=== PATIENT | male | born 2000 | race Caucasian/White ===

== ENCOUNTER 2018-09-24 16:56 | Emergency (ER) | payer OTHER, SELFPAY ==
[2018-09-24 16:58] VITALS: BP 144/91; PULSE 100; RESP 18; TEMP 36.9; O2SAT 94; BMI 28.3
--- NOTE | 2018-09-24 17:01 | RAD_ITS ---
STUDY: X-RAY CHEST REASON FOR EXAM: Male, 17 years old. Cough TECHNIQUE: Frontal view of the chest COMPARISON: None. FINDINGS: The lungs are clear. There are no pleural effusions. There is no pneumothorax. The heart is normal in size. The visualized osseous structures are within normal limits. RAD/Chest 1 View IMPRESSION: No acute thoracic pathology. Electronically Signed: Serg Garrison, at 17:29 EST Tel , Service support ,
[2018-09-24 17:48] VITALS: PULSE 108; RESP 18
[2018-09-24] MEDS: Albuterol 2.5 MG/3 ML VIAL.NEB. INHALATION ×2 (17:48→17:58)
[2018-09-24] MEDS: Ipratropium/Albuterol Sulfate 3 ML AMPUL.NEB INHALATION (17:48)
[2018-09-24] MEDS: predniSONE 20 MG Tablet 60 MG PO (18:08)
--- NOTE | 2018-09-24 18:08 | ED.DCSUM_ITS ---
- ER Visit Summary Date of Service: 09/24/18 Chief Complaint: Cough History of Present Illness: The patient is a 17 M with a one-month history of cough. He has head and chest congestion and occasionally brings up sputum. He has not had fever but has had noted occasional chills. He denies chest pain. Family states patient did have asthma-like symptoms when he was in school and played sports. He had an inhaler to use at that time. Physical Examination: Vital signs are unremarkable. His pulse ox is 94% on room air. Patient sitting upright in bed no acute distress. He is speaking full sentences. Head neck examination reveals TMs to be clear bilaterally. He has mild posterior pharyngeal drainage. Heart is regular rate and rhythm. Lungs sounds with expiratory wheezes throughout. Abdomen is soft nontender. Test Results: Chest x-ray ordered per nursing protocol shows no focal infiltrate. Emergency Department Course and Treatment: Patient is given prednisone and aerosols. On repeat evaluation his lungs are clear. So he will be given 4 additional days of prednisone at home and albuterol MDI. He is to follow with his primary care physician. Treatment Plan: [] Disposition: Discharge Impression: Viral URI with bronchospasm This note was generated with [employer] dictation software. It may contain incorrect words, spelling, and punctuation that were not noted in review of the chart prior to signing ED Disposition - Plan for ED Patient: Chief Complaint: Cough Referrals: Janes Farmer MD [Primary Care Provider] -
[2018-09-24 18:09] VITALS: O2SAT 96
[2018-09-24 18:10] VITALS: RESP 18; O2SAT 95
--- NOTE | 2018-09-24 18:19 | ED.DEP ---
ED Disposition - Plan for ED Patient: Disposition: Home or Assisted Living Chief Complaint: Cough Instructions: ED URI Viral W Wheezing Prescriptions: Albuterol Inhaler [Ventolin Hfa] 1 - 2 puff INHALATION Q4H PRN PRN #1 inhaler PRN Reason: Wheezing Prednisone [Deltasone] 40 mg PO DAILY #8 tablet Referrals: Janes Farmer MD [Primary Care Provider] - 1 Week
[2018-09-24 18:25] VITALS: PULSE 99; RESP 18; O2SAT 97
--- OUTSIDE RECORDS SUMMARY | 2018-11-19 16:37 | XMS RPT_ITS ---
:2000 Author Organization [facility] Care Team Providers Name Role Phone Janes Farmer Primary Care Unavailable Katie Youngblood Attending Unavailable PROBLEMS PROBLEMS No Problem Records FoundPROCEDURES PROCEDURES No Procedure Records FoundRESULTS RESULTS EMERGENCY DEPARTMENT Observed: 09/24/2018 Status: F Source: [place] SUMMARY 10:56 PM [facility] REPOSITORY [facility] Medical Records Department [address] [place] [address] Emergency Department Summary 09/24/18 1806 MR#: [id number] Acct: [id number] Name: MEJIA BECK Rep #: [id number] : 2000 17 From: Katie Youngblood MD PCP: Janes Farmer MD Status: DEP ER - ER Visit Summary Date of Service: 09/24/18 Chief Complaint: Cough History of Present Illness: The patient is a 17 M with a one- month history of cough. He has head and chest congestion and occasionally brings up sputum. He has not had fever but has had noted occasional chills. He denies chest pain. Family states patient did have asthma-like symptoms when he was in school and played sports. He had an inhaler to use at that time. Physical Examination: Vital signs are unremarkable. His pulse ox is 94% on room air. Patient sitting upright in bed no acute distress. He is speaking full sentences. Head neck examination reveals TMs to be clear bilaterally. He has mild posterior pharyngeal drainage. Heart is regular rate and rhythm. Lungs sounds with expiratory wheezes throughout. Abdomen is soft nontender. Test Results: Chest x-ray ordered per nursing protocol shows no focal infiltrate. Emergency Department Course and Treatment: Patient is given prednisone and aerosols. On repeat evaluation his lungs are clear. So he will be given 4 additional days of prednisone at home and albuterol MDI. He is to follow with his primary care physician. Treatment Plan: [] Disposition: Discharge Impression: Viral URI with bronchospasm This note was generated with [employer] dictation software. It may contain incorrect words, spelling, and punctuation that were not noted in review of the chart prior to signing ED Disposition - Plan for ED Patient: Chief Complaint: Cough Referrals: Janes Farmer MD [Primary Care Provider] - What to do if you have Problems For any increased pain, shortness of breath, bleeding, nausea or vomiting, chest pain, or any unexpected problems, contact your Primary Care Provider. Call [facility] ([phone]) or report to the closest Emergency Room. Call 911 if necessary. 09/24/18 2256 <Electronically signed by Katie Youngblood MD> Date Katie Youngblood MD Cosigner Signature (If Indicated): Date CC: Janes Farmer MD DISCHARGE INSTRUCTION Observed: 09/24/2018 Status: F Source: [place] 6:20 PM [facility] REPOSITORY [facility] Medical Records Department [address] [place] [address] Discharge Instruction 09/24/18 1819 MR#: [id number] Acct: [id number] Name: MEJIA BECK Rep #: [id number] : 2000 17 From: Katie Youngblood MD PCP: Janes Farmer MD Status: REG ER ED Disposition - Plan for ED Patient: Disposition: Home or Assisted Living Chief Complaint: Cough Instructions: ED URI Viral W Wheezing Prescriptions: Albuterol Inhaler [Ventolin Hfa] 1 - 2 puff INHALATION Q4H PRN PRN #1 inhaler PRN Reason: Wheezing Prednisone [Deltasone] 40 mg PO DAILY #8 tablet Referrals: Janes Farmer MD [Primary Care Provider] - 1 Week What to do if you have Problems For any increased pain, shortness of breath, bleeding, nausea or vomiting, chest pain, or any unexpected problems, contact your Primary Care Provider. Call [facility] ([phone]) or report to the closest Emergency Room. Call 911 if necessary. 09/24/18 1820 <Electronically signed by Katie Youngblood MD> Date Katie Youngblood MD Cosigner Signature (If Indicated): Date CC: Janes Farmer MD CHEST 1 VIEW Observed: 09/24/2018 Status: F Source: [place] 5:01 PM [facility] REPOSIT[facility] Imaging Services [address] [place] [id number] Chest 1 View MR#: [id number] Acct: [id number] Name: MEJIA BECK Rep #: [id number] : 2000 M 17 From: Serg Garrison MD PCP: Janes Farmer MD Status: PRE ER Study: Chest 1 View Date of Exam: 09/24/18 Exam# [id number] Ordering Dr: Katie Youngblood MD STUDY: X-RAY CHEST REASON FOR EXAM: Male, 17 years old. Cough TECHNIQUE: Frontal view of the chest COMPARISON: None. FINDINGS: The lungs are clear. There are no pleural effusions. There is no pneumothorax. The heart is normal in size. The visualized osseous structures are within normal limits. RAD/Chest 1 View IMPRESSION: No acute thoracic pathology. Electronically Signed: Serg Garrison, at 17:29 EST Tel , Service support , CC: Katie Youngblood MD; Janes Farmer MD [employer] Finisher: Signed ALLERGIES ALLERGIES DATE TYPE / CODE NAME / CODE REACTION SEVERITY SOURCE 09/24/2018 Drug Sulfa Itching Unknown [facility] Allergy/4160 (Sulfonamide Hospital 7[address](SNOMED Antibiotics)/ Repository CT) [id number](RX NORM) ENCOUNTERS ENCOUNTERS ADMIT/DISCHARGE ACCOUNT ADMITTING ENCOUNTER LOCATION SOURCE NUMBER CLASS 09/24/2018/ [id number] Emergency [facility] [address] ing:ED Repository PAYERS PAYERS ENCOUNTER GUARANTOR PAYER SUBSCRIBER SOURCE 09/24/2018 MEJIA [place] [id number] Insurance:MEDICAL [facility]ESS[facility]OB[facility] [id number] Number: Repository [id number]: [phone] [phone] () Date:[id number] [address] [place] [id number]: 09/24/2018 Secondary NOT GIVENUNK [place] Insurance:SELF PAY [facility] Number: Effective Repository Date:2018-09-24
== END 2018-09-24 18:25 | disposition home or self-care (01) ==
PROVIDERS: Emergency Provider Emergency Medicine; Family Provider Pediatrics; PCP Pediatrics
DX: J06.9 Acute upper respiratory infection, unspecified (principal); J98.01 Acute bronchospasm; Z72.0 Tobacco use
CPT/HCPCS: 71045; 94640; 94760; 99283

== ENCOUNTER 2019-04-19 17:12 | Emergency (ER) | payer OTHER, SELFPAY ==
[2019-04-19 17:13] VITALS: BP 139/65; PULSE 87; RESP 14; RESP 15; TEMP 36.7; O2SAT 97; BMI 26.7
[2019-04-19 17:31] VITALS: O2SAT 98
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
[2019-04-19 18:54] VITALS: BP 129/67; PULSE 75; RESP 16; O2SAT 97
== END 2019-04-19 18:57 | disposition home or self-care (01) ==
PROVIDERS: Emergency Provider Emergency Medicine; Family Provider Pediatrics; PCP Pediatrics
DX: S20.211A Contusion of right front wall of thorax, initial encounter (principal); S46.911A Strain of unspecified muscle, fascia and tendon at shoulder and upper arm level, right arm, initial encounter; V29.88XA Motorcycle rider (driver) (passenger) injured in other specified transport accidents, initial encounter; Y93.89 Activity, other specified; Y92.410 Unspecified street and highway as the place of occurrence of the external cause; F17.200 Nicotine dependence, unspecified, uncomplicated
CPT/HCPCS: 71101; 73030; 99282

== ENCOUNTER 2019-07-30 00:39 | Emergency (ER) | payer OTHER, SELFPAY ==
[2019-07-30] VITALS (9 sets, daily range): BP systolic 105–135; BP diastolic 75–102; PULSE 74–121; RESP 16–20; TEMP 36.4–37.1; O2SAT 95–98; BMI 25.9
--- NOTE | 2019-07-30 00:52 | ED.VIS.GEN ---
History of Present Illness Chief Complaint: Shortness of Breath Informant: Patient Onset: Today Narrative: Presents to ED with headache, nonproductive cough, nausea and vomiting started 2 hours ago. No sick contacts. Chills and sweats. No myalgias. No fevers. Denies any past medical history is takes Benadryl for allergies. States feels congested. No urinary symptoms. No bloody emesis. No diarrhea. Prior similar symptoms: No Past Medical History - Allergies and Home Meds Allergies/Adverse Reactions: Allergies Sulfa (Sulfonamide Antibiotics) Adverse Reaction (Verified 04/19/19 17:12) Itching Primary Care Physician: Janes Farmer MD [Primary Care Provider] - Smoking Status: Current some day smoker Review of Systems General: Reports: Chills, Sweats. Denies: Fever Eyes: Denies: Visual changes - bilaterally, Diplopia ENT: Denies: Rhinorrhea, Sore throat Cardiovascular: Denies: Chest pain, Palpitations Respiratory: Reports: Cough. Denies: Dyspnea, Dyspnea on exertion Gastrointestinal: Reports: Nausea, Vomiting. Denies: Abdominal pain, Diarrhea, Melena, Hematochezia Genitourinary: Denies: Dysuria, Hematuria, Frequency Musculoskeletal: Denies: Back pain, Extremity Pain Skin: Denies: Rash, Wounds Neurological: Denies: Headache, Weakness, Numbness Physical Exam Vital Signs/Narrative: Vital Signs Temp Pulse Resp BP Pulse Ox 07/30/19 00:47 97.9 F 07/30/19 00:44 135/94 H 07/30/19 00:42 121 H 95 07/30/19 00:40 97.9 F 121 H 20 H 117/102 H 98 Inital Vital Signs reviewed: Yes General: Well nourished, Well developed, No Acute Distress Head: Normocephalic, Atraumatic Eyes: Perrl, EOMI ENT: Moist mucous membranes, No rhinorrhea, TM's clear Neck: Supple, Nontender Cardiovascular: Regular rate, Regular rhythm, No murmurs, Tachycardia Respiratory: No distress, CTA bilaterally, Chest nontender Abdomen: Soft, Nontender, Nondistended, Normal bowel sounds Back: Nontender, Normal Inspection Extremities: Nontender, No edema Skin: Normal color, No rash Neurological: Alert, Oriented x3, Cranial nerves II-XII grossly intact, Normal Strength, Normal Sensation Psychological: Normal affect, Normal Mood Diagnostic/Tx/Re-eval - Medical Decision Making Abnormal Lab Results 07/30/19 01:05 Sodium 140 Potassium 3.8 Chloride 107 Carbon Dioxide 25.0 Anion Gap 8 BUN 22 H Creatinine 1.11 Estim Creat Clear Calc 126.88 Est GFR (MDRD) Af Amer 108 Est GFR (MDRD) Non-Af 89 BUN/Creatinine Ratio 19.8 Glucose 103 Calcium 9.1 Total Bilirubin 0.40 AST 16 ALT 32 Alkaline Phosphatase 93 Total Protein 7.9 Albumin 4.0 Globulin 3.9 Albumin/Globulin Ratio 1.0 Vitals stable except slight tachycardia on arrival. He is vomiting multiple times initially, no hematemesis. IV is placed given fluids. Electrolytes were normal. Influenza negative. Given Toradol and Zofran, headache improved nausea improve her stated had abdominal cramping on reevaluation. Was given Levsin with improvement. He developed wheezing on reevaluation, treated with aerosol treatment with improvement of symptoms. Discussed viral syndrome at this time. Heart rate rechecked by myself was 102. However prior to discharge improved to 78. He will be written for prescription for inhaler, bentyl and zofran as needed. ED Disposition - Plan for ED Patient: Disposition: Home or Assisted Living Diagnosis: Viral URI with cough, Vomiting Instructions: BRONCHITIS, No Antibiotic (Adult), VOMITING (6y-Adult) Prescriptions: Dicyclomine HCl [Bentyl] 10 mg PO Q6H PRN PRN #12 capsule PRN Reason: abdominal cramping Albuterol IH (ProAir) [Proair Hfa (SP)Vent Pts] 1 - 2 puff INHALATION Q4H PRN PRN #1 inhaler PRN Reason: Wheezing Ondansetron [Zofran Odt] 4 mg PO Q8H PRN PRN #10 tablet PRN Reason: Nausea Referrals: Janes Farmer MD [Primary Care Provider] - 5-7 Days
[2019-07-30] MEDS: 0.9% Normal Saline 1,000 ML 1000 ML IV (01:01)
[2019-07-30] MEDS: Ketorolac 15 MG/ML Vial IV (01:02)
[2019-07-30] MEDS: Ondansetron 4 MG/2 ML Vial IV (01:02)
[2019-07-30 01:29] LABS: AST(SGOT) 16 U/L (15-37); Alanine Aminotransfer ALT/SGPT 32 U/L (16-61); Alkaline Phosphatase 93 U/L (45-117); Anion Gap 8 (5-15); BUN 22 mg/dL (7-18); BUN/Creat Ratio 19.8 RATIO (10-20); Calcium,Total 9.1 mg/dL (8.5-10.1); Chloride 107 mmol/L (98-107); Creatinine, Serum 1.11 mg/dL (0.70-1.30); EST Glomerular Filtration Rate 89 mL/min (>60); Est Glom Filt Rate - Afr Amer 108 mL/min (>60); Estimated Creatinine Clearance 126.88 ml/min; Globulin 3.9 g/dL (2.2-4.2); Glucose 103 mg/dL (74-106); Potassium 3.8 mmol/L (3.5-5.1); Protein, Total 7.9 g/dL (6.4-8.2); Sodium Level 140 mmol/L (136-145)
[2019-07-30] MEDS: Hyoscyamine Sulfate 0.125 MG Tablet SUBLINGUAL (01:53)
--- NOTE | 2019-07-30 01:56 | ED.RN ---
pt stated his chest feels more tight, dr. abbott made aware, duoneb ordered respiratory alerted about breathing treatment.
[2019-07-30] MEDS: Ipratropium/Albuterol Sulfate 3 ML AMPUL.NEB INHALATION (02:07)
== END 2019-07-30 03:05 | disposition home or self-care (01) ==
PROVIDERS: Emergency Provider Emergency Medicine; Family Provider Pediatrics; PCP Pediatrics
DX: J06.9 Acute upper respiratory infection, unspecified (principal); R11.2 Nausea with vomiting, unspecified; F17.200 Nicotine dependence, unspecified, uncomplicated
CPT/HCPCS: 80048; 80053; 87804; 94640; 96361; 96374; 96375; 99284; A4216; J2405

== ENCOUNTER 2021-08-26 16:56 | Emergency (ER) | payer OTHER, SELFPAY ==
[2021-08-26 16:58] VITALS: BP 144/87; PULSE 83; RESP 14; TEMP 36.4; O2SAT 99; BMI 28.7
--- NOTE | 2021-08-26 19:04 | EDS_ITS ---
HPI History of Present Illness Chief Complaint: GI Bleed Informant: patient and parent Onset/Context/Timing Onset: Month(s) (multiple) Context: Gradual Onset Timing: Intermittent Quality: small amts of bleeding Location: down from posterior nasopharynx/nose Current Severity: Mild Maximum Severity: Mild Worsened by: nothing Relieved by: nothing but prednisone helped in past Narrative Narrative: Patient has a history of bilateral nasal polyps. He had them removed earlier this year November-December by his ENT in [place], and he states they have gradually been coming back for the last few months, and for that period time he has also had minor bleeding from them mostly posteriorly and then he spits out blood in small amounts at a time. Sometimes he wakes up in the morning with an upset stomach and vomits up a small amount of blood that he swallowed overnight. He has never had hemoptysis. It is usually mucus that he kind of sucks back from his nasopharynx and then spits out with mucus. No major hemorrhaging. No symptoms of anemia. He had an appointment with his ENT to have this further evaluated today, he states they called and canceled his appointment and advised that he come to the emergency department. He has no shortness of breath but for the last several months he has had trouble moving air through his nose due to his nasal polyps, the same symptoms that he had prior to having them removed earlier this year. [facility] Medical History (Updated 08/26/21 @ 19:[address] Heriberto Rea MD) Asthma Nasal polyps Home Medications albuterol sulfate 1 - 2 puff INHALATION Q4H PRN PRN #1 inhaler 07/30/19 [Rx Last Taken Unknown] diphenhydramine HCl 50 mg PO PRN PRN 07/30/19 [History Last Taken Unknown] montelukast 10 mg PO DAILY 08/26/21 [History Last Taken Unknown] prednisone 10 mg PO UD #30 tab 08/26/21 [Rx Last Taken Unknown] Allergy/AdvReac Type Severity Reaction Status Date / Time Sulfa (Sulfonamide AdvReac Itching Verified 08/26/21 16:58 Antibiotics) Surgical History (Updated 08/26/21 @ 19:[address] Heriberto Rea MD) H/O nasal polypectomy Social History Smoking Status: Current some day smoker tobacco type: e-cigarettes ROS ROS ED Constitutional Constitutional ED: Denies chills or fever(s) Eyes Eyes: Denies change in vision or diplopia ENT ENT ED: Reports as per HPI; Denies ear pain, nose pain, rhinorrhea or sore throat Cardiovascular Cardiovascular: Denies chest pain Respiratory/Chest Respiratory/Chest: Denies cough or dyspnea Gastrointestinal Gastrointestinal: Reports nausea and vomiting; Denies abdominal pain, constipation, diarrhea or melena Genitourinary Genitourinary ED: Denies dysuria or hematuria Musculoskeletal Musculoskeletal: Denies myalgias or neck pain Integumentary Denies abscess or rash Neurologic Neurologic: Denies headache(s), paresthesias or weakness EXAM Physical Exam Const Vital Signs: 08/26/21 16:58 Temperature 97.6 F L Temperature Source Temporal Pulse Rate 83 Respiratory Rate 14 Blood Pressure 144/87 H Blood Pressure Mean 106 Pulse Ox 99 Oxygen Delivery Method Room Air Positive well nourished and well developed General Appearance ED: well developed and NAD HEENT Reports moist mucous membranes HEENT Narrative: Posterior oropharynx normal and without blood. No trismus. Polyps visible bilaterally with some clear nasal congestion the patient is breathing through audibly, no blood/bleeding. No stridor. Speaking in full sentences. No tenderness in any of the sinuses. No asymmetric facial swelling. Negative for trauma or tenderness Resp normal respiratory effort Back/Spine Negative for no CVA tenderness General Back: other Full range of motion Extremity normal to inspection General Extremety ED: Negative for tenderness Neuro oriented x3, CN's II-XII intact bilaterally and no sensory deficits noted Sensorium / Orientation: alert Motor Exam: strength 5/5 throughout Psych mental status grossly normal MDM MDM MDM Narrative Medical decision making narrative: This patient does not have a medical emergency at this time and does not require further work-up in my opinion. He agrees. No clinical evidence of sinusitis. He agrees he needs to follow-up with his ENT as soon as he is able, and I am happy to write him a prescription for prednisone to try to help his symptoms and bleeding which is helped in the past. Discharge Plan Triage Chief Complaint: GI Bleed ED Provider: Heriberto Rea Dx/Rx/DC Orders Clinical Impression: Nasal polyp Instructions: Treatment for Nasal Polyps Prescriptions: New prednisone 10 MG tablet 10 mg PO UD Qty: 30 RF: 0 No Action diphenhydramine HCl 25 MG capsule 50 mg PO PRN PRN (Reason: Allergies) RF: 0 albuterol sulfate 1 PUFF inhaler 1 - 2 puff inhalation Q4H PRN PRN (Reason: Wheezing) Qty: 1 RF: 0 montelukast 10 mg tablet 10 mg PO DAILY RF: 0 Referrals: RADHA BAILON [Other] - As soon as possible Disposition Disposition: Home, Self Care
[2021-08-26] MEDS: predniSONE 20 MG Tablet 40 MG PO (19:11)
[2021-08-26 19:22] VITALS: BP 138/87; PULSE 76; RESP 18; O2SAT 99
== END 2021-08-26 19:23 | disposition home or self-care (01) ==
PROVIDERS: Emergency Provider Emergency Medicine
DX: J33.9 Nasal polyp, unspecified (principal); F17.290 Nicotine dependence, other tobacco product, uncomplicated; J45.909 Unspecified asthma, uncomplicated; Z79.899 Other long term (current) drug therapy
CPT/HCPCS: 99283